=== PATIENT | female | born 1995 | race Two or more races ===

== ENCOUNTER 2025-03-20 11:44 | Inpatient (IN) | payer MEDICAID, OTHER ==
[~2025-03-20] VITALS: Ht 162.6 cm; Wt 77.8 kg
--- NOTE | 2025-03-20 12:08 | ED.PDOC ---
History of Present Illness HPI Comments 29-year-old female with no reported PMHx presents with a chief complaint of abdominal pain x onset 3 hours ago with associated rectal bleeding and nausea. Patient states that her pain is localized to her RUQ, nonradiating, nonexertional, describes as aching, and rates her pain a 5/10. Patient reports that she noticed today when using the restroom she had blood when wiping and blood in the toilet. Patient describes blood as bright red in color. Patient denies any rectal pain from the bleeding. No other symptoms or modifying factors present at this time. 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 Hx Family History Family History: Reviewed,noncontributory to illness Social History Smoker: Non-Smoker Alcohol: Denies ETOH Use Drugs: Denies Drug Use Lives In: Home Constitutional: denies: chills, diaphoresis, fatigue, fever, malaise, sweats, weakness, others EENTM: denies: blurred vision, double vision, ear bleeding, ear discharge, ear drainage, ear pain, ear ringing, eye pain, eye redness, hearing loss, mouth pain, mouth swelling, nasal discharge, nose bleeding, nose congestion, nose pain, photophobia, tearing, throat pain, throat swelling, voice changes, others Respiratory: denies: cough, hemoptysis, orthopnea, SOB at rest, shortness of breath, SOB with excertion, stridor, wheezing, others Cardiovascular: denies: chest pain, dizzy spells, diaphoresis, Dyspnea on exertion, edema, irregular heart beat, left arm pain, lightheadedness, palpitations, PND, syncope, others Gastrointestinal: reports: abdominal pain, nausea, rectal bleeding; denies: abdomen distended, blood streaked bowels, constipated, diarrhea, dysphagia, difficulty swallowing, hematemesis, melena, poor appetite, poor fluid intake, rectal pain, vomiting, others Genitourinary: denies: abnormal vagina bleeding, burning, dyspareunia, dysuria, flank pain, frequency, hematuria, incontinence, pain, , vagina discharge, urgency, others Neurological: denies: dizziness, fainting, headache, left sided numbness, left sided weakness, numbness, paresthesia, pre-existing deficit, right sided numbness, right sided weakness, seizure, speech problems, tingling, tremors, weakness, others Musculoskeletal: denies: back pain, gout, joint pain, joint swelling, muscle pain, muscle stiffness, neck pain, others Integumetry: denies: bruises, change in color, change in hair/nails, dryness, laceration, lesions, lumps, rash, wounds, others Allergic/Immunocompromised: denies: Difficulty Healing, Frequent Infections, Hives, Itching, others Hematologic/Lymphatic: denies: anemia, blood clots, easy bleeding, easy bruising, swollen glands, others Endocrine: denies: excessive hunger, excessive sweating, excessive thirst, excessive urination, flushing, intolerance to cold, intolerance to heat, unexplained weight gain, unexplained weight loss, others Psychiatric: denies: anxiety, bipolar disorder, depression, hopeless, panic disorder, schizophrenia, sleepless, suicidal, others All Other Systems: Reviewed and Negative Physical Exam General Appearance: Moderate Distress HEENT: Normal ENT Inspection, Pharynx Normal, TMs Normal Neck: Full Range of Motion, Non-Tender, Normal, Normal Inspection Respiratory: Chest Non-Tender, Lungs Clear, No Accessory Muscle Use, No Respiratory Distress, Normal Breath Sounds Cardiovascular: No Edema, No JVD, No Murmur, No Gallop, Normal Peripheral Pulses, Regular Rate/Rhythm Breast Exam: Deferred Gastrointestinal: Epigastric, No Organomegaly, No Pulsatile Mass, Normal Bowel Sounds, Soft, Tenderness Genitalia: Deferred Pelvic: Deferred Rectal: Deferred Extremities: No calf tenderness, Normal capillary refill, Normal inspection, Normal range of motion, Non-tender, No pedal edema Musculoskeletal : Apperance: Normal Neurologic: Alert, conveyor console operator II-XII nml as Tested, No Motor Deficits, Normal Affect, Normal Mood, No Sensory Deficits Cerebellar Function: Normal Reflexes: Normal Skin: Dry, Normal Color, Warm Lymphatic: No Adenopathy Was a procedure done? Was a procedure done?: No Differential Dx Considerations may include: Cholelithiasis, diverticulitis, generalized weakness X-Ray, Labs, Meds, VS Vital Signs Date Time Temp Pulse Resp B/P (MAP) Pulse Ox O2 Delivery O2 Flow Rate FiO2 03/20/25 14:43 96.4 96 16 102/68 (79) 96 96.4 03/20/25 11:59 97.9 106 18 118/61 (80) 97 97.9 Lab Test 03/20/25 13:34 03/20/25 12:02 Range/Units White Blood Count 11.2 H 4.4-10.8 10^3/uL Red Blood Count 4.96 4.0-5.20 10^6/uL Hemoglobin 14.4 12.2-16.2 g/dL Hematocrit 42.0 36.0-46.0 % Mean Corpuscular Volume 84.7 80.0-100.0 fL Mean Corpuscular Hemoglobin 29.0 28.0-32.0 pg Mean Corpuscular Hemoglobin Concent 34.2 32.0-36.0 g/dL Red Cell Distribution Width 13.5 11.8-14.3 % Platelet Count 393 140-450 10^3/uL Mean Platelet Volume 8.7 6.9-10.8 fL Neutrophils (%) (Auto) 72.9 37.0-80.0 % Lymphocytes (%) (Auto) 20.7 10.0-50.0 % Monocytes (%) (Auto) 4.4 0.0-12.0 % Eosinophils (%) (Auto) 1.6 0.0-7.0 % Basophils (%) (Auto) 0.4 0.0-2.0 % Neutrophils # (Auto) 8.1 1.6-8.6 10 ^3/uL Lymphocytes # (Auto) 2.3 0.4-5.4 10 ^3/uL Monocytes # (Auto) 0.5 0-1.3 10 ^3/uL Eosinophils # (Auto) 0.2 0-0.8 10 ^3/uL Basophils # (Auto) 0 0-0.2 10 ^3/uL Nucleated Red Blood Cells 0.0 % Prothrombin Time 10.1 9.3-11.8 sec Prothrombin Time INR 0.95 0.9-1.15 Activated Partial Thromboplast Time 28.0 24.5-34.5 SEC Sodium Level 139 136-145 mmol/L Potassium Level 4.2 3.5-5.1 mmol/L Chloride Level 104 98-107 mmol/L Carbon Dioxide Level 27 20-31 mmol/L Anion Gap 8 5-15 Blood Urea Nitrogen 14 9-23 mg/dL Creatinine 0.69 0.550-1.02 mg/dL Glomerular Filtration Rate Calc 121 >90 mL/min BUN/Creatinine Ratio 20.3 H 10.0-20.0 Serum Glucose 100 74-106 mg/dL Calcium Level 9.8 8.7-10.4 mg/dL Total Bilirubin 0.3 0.2-1.0 mg/dL Aspartate Amino Transferase (AST) 21 13-40 U/L Alanine Aminotransferase (ALT) 32 7-40 U/L Alkaline Phosphatase 89 46-116 U/L Total Protein 7.5 5.7-8.2 g/dL Albumin 4.9 H 3.2-4.8 g/dL Lipase 36 12-53 U/L Urine Color Colorless Yellow Urine Clarity Clear Clear Urine pH 5.5 5.0-9.0 Urine Specific [place] 1.008 1.001-1.035 Urine Protein Negative Negative Urine Ketones Negative Negative Urine Blood Negative Negative /uL Urine Nitrite Negative Negative Urine Bilirubin Negative Negative Urine Urobilinogen Normal Negative mg/dL Urine Leukocyte Esterase Negative Negative /uL Urine RBC None seen 0 - 4 /hpf Urine Microscopic WBC < 1 0-5 /HPF Urine Squamous Epithelial Cells Few <5 /hpf Urine Bacteria None seen None Seen /hpf Urine Glucose Normal Normal mg/dL Urine Test Negative Negative IV Hep-Lock was established The patient's CBC shows an elevated white blood cell count of 11.2 The rest of the CBC is within normal limits The chemistry panel is within normal limits The urine test is negative The patient is being admitted at this time An ultrasound of the gallbladder shows: IMPRESSION: 1. Cholelithiasis with no dilated duct or thickened gallbladder wall. A positive sonographic Kline's sign is elicited. 2. Right kidney measures 11.9 cm and appears normal 3. Pancreas appears normal Images Reviewed?: Images reviewed and evaluated by me Time of 1ST Reevaluation: 12:31 Reevaluation 1ST: Improved Patient Education/Counseling: Diagnosis, Treatment, Prognosis Family Education/Counseling: No Family Present SEPSIS Sepsis Screen Physician Orders Gallbladder (03/20/25 12:05) Vital Signs Date Time Temp Pulse Resp B/P (MAP) Pulse Ox O2 Delivery O2 Flow Rate FiO2 03/20/25 14:43 96.4 96 16 102/68 (79) 96 96.4 03/20/25 11:59 97.9 106 18 118/61 (80) 97 97.9 Laboratory Tests Test 03/20/25 13:34 White Blood Count 11.2 10^3/uL (4.4-10.8) H Departure 1 Departure Time of Disposition: 14:45 Impression: Primary Impression: Intractable abdominal pain Additional Impression: Cholelithiasis Qualified Codes: K80.20 - Calculus of gallbladder without cholecystitis without obstruction Disposition: ADMITTED INPATIENT Admit to: Med Surg Condition: Fair Critical Care Note Critical Care Time?: No Stability Stability form required: Yes Unstable for transfer: ED Physician Assesment (Clinical assesment) Heart Score Heart Score: Heart Score Response (Comments) Value History N/A 0 EKG N/A 0 Age N/A 0 Risk Factors N/A 0 Troponin N/A 0 Total 0 I personally scribed for MANA ESTRELLA MD ([email or web address]) on 03/20/25 at 12:08. Electronically submitted by Ean Daly ([email or web address]). MANA ESTRELLA MD Mar 20, 2025 12:08
--- NOTE | 2025-03-20 13:36 | DVH ---
INDICATION: pain TECHNIQUE: Multiple real-time sonographic images of the abdomen were obtained. COMPARISON: None FINDINGS: The liver is homogenous in echogenicity. The liver measures 17.9 cm. No intrahepatic bilia ry ductal dilatation is noted. The gallbladder wall measures 0.23 cm and is unremarkable. Gallstones are noted in the gallbladder. . The common duct measures 0.35 cm and is unremarkable. No pericholecystic fluid is noted. A positi ve sonographic kline's sign is elicited. The right kidney measures 11. cm. No hydronephrosis. The pancreas is visualized . The visualized portions of the IVC and aorta are grossly unremarkable. IMPRESSION: 1. Cholelithiasis with no dilated duct or thickened gallbladder wall. A positive sonographic Kline's sign is elicited. 2. Right kidney measures 11.9 cm and appears normal 3. Pancreas appears normal HS:Y
[2025-03-20 13:44] LABS: Urine Protein, UAD Negative (Negative)
[2025-03-20 13:51] LABS: Hematocrit 42.0 % (36.0-46.0); Hemoglobin 14.4 g/dL (12.2-16.2); Mean Corpuscular Hemoglobin 29.0 pg (28.0-32.0); Mean Corpuscular Volume 84.7 fL (80.0-100.0); Nucleated Red Blood Cells % 0.0 %
[2025-03-20 14:06] LABS: INR 0.95 (0.9-1.15); Partial Thromboplastin Time 28.0 SEC (24.5-34.5); Prothrombin Time 10.1 sec (9.3-11.8)
[2025-03-20 14:09] LABS: Alanine Aminotransferase 32 U/L (7-40); Alkaline Phosphatase 89 U/L (46-116); Anion Gap 8 (5-15); BUN/Creatinine Ratio 20.3 (10.0-20.0); Bilirubin, Total 0.3 mg/dL (0.2-1.0); Blood Urea Nitrogen 14 mg/dL (9-23); Calcium 9.8 mg/dL (8.7-10.4); Carbon Dioxide 27 mmol/L (20-31); Chloride 104 mmol/L (98-107); Glucose 100 mg/dL (74-106); Lipase 36 U/L (12-53); Potassium 4.2 mmol/L (3.5-5.1); Sodium 139 mmol/L (136-145); Total Protein 7.5 g/dL (5.7-8.2)
[2025-03-20 14:11] LABS: Albumin 4.9 g/dL (3.2-4.8)
[2025-03-20] MEDS ORDERED: ONDANSETRON HCL 4 MG/2 ML VIAL IV PRN (15:30)
[2025-03-20] MEDS ORDERED: ACETAMINOPHEN 325 MG TAB PO PRN (15:30)
[2025-03-20] MEDS ORDERED: HYDROcodone-ACET 5/325MG TAB PO PRN (15:30)
[2025-03-20] MEDS ORDERED: MORPHINE SULFATE INJ 2 MG/ml SYRG IV PRN ×2 (15:30→17:30)
[2025-03-20] MEDS: SODIUM CHLORIDE 0.9% 1,000 ML IV SCH (16:11)
[2025-03-20] MEDS: cefTRIAXone 1GM/50ML D5W 50 ML IV ONE (16:13)
--- NOTE | 2025-03-20 17:27 | DVHHP2 ---
History of Present Illness Reason for Visit: Acute abdominal pain History of Present Illness The patient is a 29-year-old female who denies past medical history [place] [facility] [place] of [place] pain. Patient reports she has been experiencing localized right upper quadrant abdominal pain, rating 5/10 numeric scale, described as aching, associated with nausea and rectal bleeding. She reports currently 8-month-old baby. Patient was seen and evaluated in the ED, laboratory data shows WBC 11.2, platelets 393, sodium 139, potassium 4.2, BUN 14, creatinine 0.69, glucose 100, calcium 9.8, lipase 36, blood pressure 102/68, heart rate 96, temperature 97.9 F, O2 saturation 96% on room air. Gallbladder ultrasound revealing cholelithiasis with no dilated ducts thickened gallbladder wall, no positive sonographic Kline's sign, pancreas appears normal, right kidney measures 11.9 cm and appears normal. Please see medication orders section in the computer. On my assessment, patient denied chest pain, no headache, no dizziness, no shortness of breaths, no diarrhea, no rectal bleeding at this moment, no nausea, no vomiting, no fever, no chills. Patient was admitted for further evaluation and medical management. Past Medical History Denies past medical history Past Surgical History Denies all surgeries Family History Reviewed, noncontributory to the management of this case. Past Social History The patient lives at home, denies smoking, alcohol or illicit drugs abuse. Review of Systems Constitutional: No: Fever, Chills, Sweats, Weakness, Malaise, Other Eyes: No: Pain, Vision change, Conjunctivae inflammation, Eyelid inflammation, Other, Redness ENT: No: Ear pain, Ear discharge, Nose pain, Nose discharge, Nose congestion, Mouth pain, Mouth swelling, Throat pain, Throat swelling, Other Respiratory: No: Cough, Dry, Shortness of breath, SOB with excertion, Wheezing, Hemoptysis, Pleuritic Pain, Sputum, Wheezing, Other Cardiovascular: No: Chest Pain, Palpitations, Orthopnea, Paroxysmal Noc. Dyspnea, Edema, Lt Headedness, Other Gastrointestinal: Nausea, Abdominal Pain, Other (Rectal bleeding); No: Vomiting, Diarrhea, Constipation, Melena, Hematochezia Genitourinary: No Dysuria, No Frequency, No Incontinence, No Hematuria, No Retention, No Other Musculoskeletal: No: other, neck pain, shoulder pain, arm pain, back pain, hand pain, leg pain, foot pain Skin: No: Rash, Lesions, Jaundice, Bruising, Other Neurological: No: Weakness, Numbness, Incoordination, Change in speech, Confusion, Seizures, Other Allergies: Coded Allergies: NO KNOWN ALLERGIES (Unverified , 03/20/25) Medications Current Medications Medications Dose Ordered Sig/Rubin Route Start Time Stop Time Status Last Admin Dose Admin Sodium Chloride 1,000 ml @ 60 mls/hr [id number] IV 03/20/25 15:30 03/20/25 16:11 60 MLS/HR Acetaminophen/ Hydrocodone Bitart 1 tab Q4HP PRN PO 03/20/25 15:30 Ondansetron HCl 4 mg Q4HP PRN IV 03/20/25 15:30 Acetaminophen 650 mg Q6HP PRN PO 03/20/25 15:30 Morphine Sulfate 2 mg Q4HPRN PRN IV 03/20/25 15:30 Ceftriaxone Sodium 50 ml @ 100 mls/hr DAILY@09 IV 03/21/25 09:00 Pantoprazole Sodium 40 mg DAILY IV 03/21/25 10:00 Exam Vital Signs Vital Signs Date Time Temp Pulse Resp B/P (MAP) Pulse Ox O2 Delivery O2 Flow Rate FiO2 03/20/25 16:55 98.2 82 16 105/63 (77) 98 98.2 03/20/25 16:51 Room Air* 0 21 General Appearance: Alert, Oriented X3, Cooperative, No acute distress HEENT: Atraumatic, PERRLA, EOMI, Mucous membr. moist/pink Respiratory: Normal air movement Cardiovascular: Regular rate, Normal S1, Normal S2, No murmurs Abdominal: Normal bowel sounds, Soft, No tenderness, No hepatospenomegaly, No masses Extremities: No clubbing, No cyanosis, No edema, Normal pulses, No tenderness/swelling Skin: No rashes, No breakdown, No significant lesion Neuro: Normal gait, Normal speech, Strength at 5/5 X4 ext, Normal tone, Sensation intact, Cranial nerves 3-12 NL, Reflexes 2+ Psych/Mental Status: Mental status NL, Mood NL Labs/Xrays Labs Test 03/20/25 13:34 03/20/25 12:02 Range/Units White Blood Count 11.2 H 4.4-10.8 10^3/uL Red Blood Count 4.96 4.0-5.20 10^6/uL Hemoglobin 14.4 12.2-16.2 g/dL Hematocrit 42.0 36.0-46.0 % Mean Corpuscular Volume 84.7 80.0-100.0 fL Mean Corpuscular Hemoglobin 29.0 28.0-32.0 pg Mean Corpuscular Hemoglobin Concent 34.2 32.0-36.0 g/dL Red Cell Distribution Width 13.5 11.8-14.3 % Platelet Count 393 140-450 10^3/uL Mean Platelet Volume 8.7 6.9-10.8 fL Neutrophils (%) (Auto) 72.9 37.0-80.0 % Lymphocytes (%) (Auto) 20.7 10.0-50.0 % Monocytes (%) (Auto) 4.4 0.0-12.0 % Eosinophils (%) (Auto) 1.6 0.0-7.0 % Basophils (%) (Auto) 0.4 0.0-2.0 % Neutrophils # (Auto) 8.1 1.6-8.6 10 ^3/uL Lymphocytes # (Auto) 2.3 0.4-5.4 10 ^3/uL Monocytes # (Auto) 0.5 0-1.3 10 ^3/uL Eosinophils # (Auto) 0.2 0-0.8 10 ^3/uL Basophils # (Auto) 0 0-0.2 10 ^3/uL Nucleated Red Blood Cells 0.0 % Prothrombin Time 10.1 9.3-11.8 sec Prothrombin Time INR 0.95 0.9-1.15 Activated Partial Thromboplast Time 28.0 24.5-34.5 SEC Sodium Level 139 136-145 mmol/L Potassium Level 4.2 3.5-5.1 mmol/L Chloride Level 104 98-107 mmol/L Carbon Dioxide Level 27 20-31 mmol/L Anion Gap 8 5-15 Blood Urea Nitrogen 14 9-23 mg/dL Creatinine 0.69 0.550-1.02 mg/dL Glomerular Filtration Rate Calc 121 >90 mL/min BUN/Creatinine Ratio 20.3 H 10.0-20.0 Serum Glucose 100 74-106 mg/dL Calcium Level 9.8 8.7-10.4 mg/dL Total Bilirubin 0.3 0.2-1.0 mg/dL Aspartate Amino Transferase (AST) 21 13-40 U/L Alanine Aminotransferase (ALT) 32 7-40 U/L Alkaline Phosphatase 89 46-116 U/L Total Protein 7.5 5.7-8.2 g/dL Albumin 4.9 H 3.2-4.8 g/dL Lipase 36 12-53 U/L Urine Color Colorless Yellow Urine Clarity Clear Clear Urine pH 5.5 5.0-9.0 Urine Specific [place] 1.008 1.001-1.035 Urine Protein Negative Negative Urine Ketones Negative Negative Urine Blood Negative Negative /uL Urine Nitrite Negative Negative Urine Bilirubin Negative Negative Urine Urobilinogen Normal Negative mg/dL Urine Leukocyte Esterase Negative Negative /uL Urine RBC None seen 0 - 4 /hpf Urine Microscopic WBC < 1 0-5 /HPF Urine Squamous Epithelial Cells Few <5 /hpf Urine Bacteria None seen None Seen /hpf Urine Glucose Normal Normal mg/dL Urine Test Negative Negative PATIENT: JARETT COTAACCT: [id number] UNIT: [id number] : 1995 LOC: ER ROOM / BED: / AGE / SEX: 29 / F ADM STATUS: REG ER SERVICE 1205 ORDERING PHYSICIAN: MANA ESTRELLA MD PROCEDURE(s): GBUS - GALLBLADDER REASON: pain ORDER NUMBER(s): [id number], ACCESSION NUMBER(s): [id number] INDICATION: pain TECHNIQUE: Multiple real-time sonographic images of the abdomen were obtained. COMPARISON: None FINDINGS: The liver is homogenous in echogenicity. The liver measures 17.9 cm. No intrahepatic biliary ductal dilatation is noted. The gallbladder wall measures 0.23 cm and is unremarkable. Gallstones are noted in the gallbladder. The common duct measures 0.35 cm and is unremarkable. No pericholecystic fluid is noted. A positive sonographic kline's sign is elicited. The right kidney measures 11. cm. No hydronephrosis. The pancreas is visualized . The visualized portions of the IVC and aorta are grossly unremarkable. IMPRESSION: 1. Cholelithiasis with no dilated duct or thickened gallbladder wall. A positive sonographic Kline's sign is elicited. 2. Right kidney measures 11.9 cm and appears normal 3. Pancreas appears normal SEPSIS Sepsis Screen Date sepsis recognized/suspect: Mar 20, 2025 Time Sepsis recognized/suspect: 1707 Recent Procedure: No On Antibiotic Therapy: No Respiratory Rate >20: No Heart Rate >90: No Temp<36 C (96.8 F) or >38.3 C: No SBP <90 or MAP <65 mmHG: No New Acute Mental Status Change: No Is the patient on CPAP, BIPAP,: No Physician Orders Gallbladder (03/20/25 12:05) Allergies (03/20/25 15:30) Code Status (03/20/25 15:30) Sodium Chloride 0.9% (03/20/25 15:30) Oxygen Per Hour (03/20/25 15:30) Hydrocodone-Acet 5/325mg Tab (Rentz 5/32 (03/20/25 15:30) Ondansetron Hcl (Zofran) (03/20/25 15:30) Complete Blood Count (03/21/25 04:00) Comprehensive Metabolic Panel (03/21/25 04:00) Condition: Serious (03/20/25 15:30) Acetaminophen Tablet (Tylenol Tablet) (03/20/25 15:30) Clear Liq Diet (03/20/25 Dinner) Bedrest With Bathroom Privileg (03/20/25 15:30) Morphine Sulfate Injection (03/20/25 15:30) Sequential Compression Device (03/20/25 ) Ceftriaxone 1gm/50ml D5w (Rocephin) (03/21/25 09:00) Pantoprazole (Protonix) (03/21/25 10:00) Vital Signs Date Time Temp Pulse Resp B/P (MAP) Pulse Ox O2 Delivery O2 Flow Rate FiO2 03/20/25 16:55 98.2 82 16 105/63 (77) 98 98.2 03/20/25 16:51 Room Air* 0 21 03/20/25 14:43 96.4 96 16 102/68 (79) 96 96.4 03/20/25 11:59 97.9 106 18 118/61 (80) 97 97.9 Laboratory Tests Test 03/20/25 13:34 White Blood Count 11.2 10^3/uL (4.4-10.8) H Medications Medications Dose Ordered Sig/Rubin Route Start Time Stop Time Status Last Admin Dose Admin Ceftriaxone Sodium 50 ml @ 100 mls/hr ONCE ONCE IV 03/20/25 15:30 03/20/25 15:59 DC 03/20/25 16:13 100 MLS/HR Sodium Chloride 1,000 ml @ 60 mls/hr [id number] IV 03/20/25 15:30 03/20/25 16:11 60 MLS/HR Assessment/Plan Assessment/Plan Intractable abdominal pain Cholelithiasis Leukocytosis, unspecified Calculus of gallbladder without cholecystitis without obstruction Plan 1. Admit to med surge unit 2. Breathing treatment 3. Pain control management 4. IV antibiotic management 5. Management of fluids and electrolytes 6. Consultation for hospitalist 7. Diagnostic test gallbladder ultrasound 8. DVT prophylaxis on SCDs 9. Repeat labs CBC, CMP in a.m. 10. Continue with current medical management 11. Treatment plan discussed with patient and RN. Patient verbalized understanding. Plan discussed with: Patient, Other (RN) My Orders Orders - JOYCE BREWSTER DNP Procedure Category Date Status Time Allergies KIA 03/20/25 In Process 15:30 Code Status CODE 03/20/25 Transmitted 15:30 Sodium Chloride 0.9% PHA 03/20/25 In Process 15:30 Oxygen Per Hour RT 03/20/25 Transmitted 15:30 Hydrocodone-Acet PHA 03/20/25 In Process 5/325mg Tab (Rentz 15:30 Ondansetron Hcl PHA 03/20/25 In Process (Zofran) 15:30 Complete Blood Count LAB 03/21/25 Verified 04:00 Comprehensive LAB 03/21/25 Verified Metabolic Panel 04:00 Condition: Serious KIA 03/20/25 In Process 15:30 Acetaminophen Tablet PHA 03/20/25 In Process (Tylenol Tablet) 15:30 Clear Liq Diet DIET 03/20/25 Transmitted Dinner Bedrest With Bathroom KIA 03/20/25 In Process Privileg 15:30 Morphine Sulfate PHA 03/20/25 In Process Injection 15:30 Sequential KIA 03/20/25 In Process Compression Device Ceftriaxone 1gm/50ml PHA 03/21/25 In Process D5w (Rocephin) 09:00 Pantoprazole PHA 03/21/25 In Process (Protonix) 10:00 Problem List: (1) Intractable abdominal pain (2) Cholelithiasis (3) Leukocytosis, unspecified (4) Calculus of gallbladder without cholecystitis without obstruction Date of Service: Mar 20, 2025 Billing Provider: JOYCE BREWSTER DNP Common Visit Codes: [id number] INP/OBS CARE (HIGH) JOYCE BREWSTER DNP Mar 20, 2025 17:27
[2025-03-20] MEDS ORDERED: NITROGLYCERIN 0.4 MG SL TAB SL PRN (17:30)
[2025-03-21] VITALS (7 sets, daily range): BP systolic 95–139; BP diastolic 44–89; PULSE 66–81; RESP 15–18; TEMP 97.5–98.3; O2SAT 95–100
[2025-03-21 03:54] LABS: Hematocrit 37.3 % (36.0-46.0); Hemoglobin 12.8 g/dL (12.2-16.2); Mean Corpuscular Hemoglobin 28.9 pg (28.0-32.0); Mean Corpuscular Volume 84.3 fL (80.0-100.0); Nucleated Red Blood Cells % 0.1 %
[2025-03-21 04:08] LABS: Alanine Aminotransferase 31 U/L (7-40); Albumin 4.4 g/dL (3.2-4.8); Alkaline Phosphatase 77 U/L (46-116); Anion Gap 9 (5-15); BUN/Creatinine Ratio 16.9 (10.0-20.0); Bilirubin, Total 0.3 mg/dL (0.2-1.0); Blood Urea Nitrogen 11 mg/dL (9-23); Calcium 10.0 mg/dL (8.7-10.4); Carbon Dioxide 26 mmol/L (20-31); Chloride 105 mmol/L (98-107); Glucose 95 mg/dL (74-106); Potassium 3.7 mmol/L (3.5-5.1); Sodium 140 mmol/L (136-145); Total Protein 6.9 g/dL (5.7-8.2)
[2025-03-21] MEDS: cefTRIAXone 1GM/50ML D5W 50 ML IV SCH (09:13)
[2025-03-21] MEDS: PANTOPRAZOLE 40 MG/10 ML VIAL INJ IV SCH (10:54)
--- NOTE | 2025-03-21 13:48 | DVHPN2 ---
Progress Note Date Seen: Mar 21, 2025 Medical Necessity Reason Pt with a Central, PICC or Fol: No Subjective Patient reports: No new complaints Review of Systems: HEENT:Normal, CVS:Normal, RESPIRATORY:Normal, GI:Normal, :Normal, MSK:Normal, NEURO:Normal Objective vital signs Vital Sign Date Time Temp Pulse Resp B/P (MAP) Pulse Ox O2 Delivery O2 Flow Rate FiO2 03/21/25 11:09 78 18 Room Air* 0 21 03/21/25 10:37 97.7 95/56 (69) 98 97.7 medications Current Medications Medications Dose Ordered Sig/Rubin Route Start Time Stop Time Status Last Admin Dose Admin Sodium Chloride 1,000 ml @ 60 mls/hr [id number] IV 03/20/25 15:30 03/20/25 16:11 60 MLS/HR Acetaminophen/ Hydrocodone Bitart 1 tab Q4HP PRN PO 03/20/25 15:30 Ondansetron HCl 4 mg Q4HP PRN IV 03/20/25 15:30 Acetaminophen 650 mg Q6HP PRN PO 03/20/25 15:30 Morphine Sulfate 2 mg Q4HPRN PRN IV 03/20/25 15:30 Ceftriaxone Sodium 50 ml @ 100 mls/hr DAILY@09 IV 03/21/25 09:00 03/21/25 09:13 100 MLS/HR Pantoprazole Sodium 40 mg DAILY IV 03/21/25 10:00 03/21/25 10:54 40 MG Nitroglycerin 0.4 mg Q5MINP PRN SL 03/20/25 17:30 Morphine Sulfate 2 mg Q30M PRN IV 03/20/25 17:30 Examination: GENERAL:Normal, HEENT:Normal, NECK:Normal, LUNGS:Normal, CVS:Normal, ABDOMEN:Normal, MSK:Normal, SKIN:Normal, NEURO:Normal, :Normal laboratory and microbiology Laboratory Tests 03/21/25 03:13 Test 03/21/25 03:13 Range/Units Serum Glucose 95 74-106 mg/dL Problem List/Assessment/Plan Problem List/Assessment/Plan #1 GI bleeding: gi eval, ppi #2 gallstones ?acute geoff: ivf, iv antibiotics Plan discussed with: Patient, Spouse My Orders My Orders Orders - IBETH HIGH MD Procedure Category Date Status Time * Gi Dvh Director Of Sustainability CONS 03/21/25 Verified 13:45 Metronidazole Ivpb PHA 03/21/25 Verified Flagyl 14:00 Ct Ab Pel Wo Con-No CT 03/21/25 Verified Oral Or Iv 13:45 Basic Metabolic Panel LAB 03/22/25 Verified 06:00 Complete Blood Count LAB 03/22/25 Verified 06:00 Date of Service: Mar 21, 2025 Billing Provider: IBETH HIGH MD Common Visit Codes: [id number] INP/OBS CARE(HIGH) IBETH HIGH MD Mar 21, 2025 13:48
--- NOTE | 2025-03-21 14:24 | DVHINCON2 ---
Date of service: Mar 21, [address] Victoria Reason for Consultation Rectal bleeding History of Present Illness The patient is a 29-year-old female who denies past medical history presented to [facility] ED with complaint of abdominal pain. Patient reports she has been experiencing localized right upper lower quadrant abdominal pain, rating 5/10 numeric scale, described as aching, associated with nausea and rectal bleeding. She reports currently 8-month-old baby. Patient came to the ER because she had moderate amount of bright red blood per rectum yesterday. Today the patient has not had any further bleeding. Has noted some constipation alternating with normal stools. She is also complaining of some GERD and dyspepsia symptoms. Gallbladder ultrasound revealing cholelithiasis with no dilated ducts thickened gallbladder wall, no positive sonographic Kline's sign, pancreas appears normal, right kidney measures 11.9 cm and appears normal. Past Medical History Negative Family History: Patient reports no known family medical history. Allergies: Coded Allergies: NO KNOWN ALLERGIES (Unverified , 03/20/25) Home Meds No Active Prescriptions or Reported Meds Current Medications Current Medications Medications (Trade) Dose Ordered Sig/Rubin Route PRN Reason Start Time Stop Time Status Last Admin Sodium Chloride 1,000 ml @ 60 mls/hr [id number] IV 03/20/25 15:30 03/20/25 16:11 Acetaminophen/ Hydrocodone Bitart ([place] 5/325MG Tab) 1 tab Q4HP PRN PO MODERATE PAIN (4-6 PAIN SCALE) 03/20/25 15:30 Ondansetron HCl (Zofran) 4 mg Q4HP PRN IV NAUSEA / VOMITING 03/20/25 15:30 Acetaminophen (Tylenol Tablet) 650 mg Q6HP PRN PO PAIN SCALE 1-3 OR TEMP>100.4 03/20/25 15:30 Morphine Sulfate 2 mg Q4HPRN PRN IV SEVERE PAIN (7-10 PAIN SCALE) 03/20/25 15:30 Ceftriaxone Sodium 50 ml @ 100 mls/hr DAILY@09 IV 03/21/25 09:00 03/21/25 09:13 Pantoprazole Sodium (Protonix) 40 mg DAILY IV 03/21/25 10:00 03/21/25 10:54 Nitroglycerin (Ntrostat Sublingual) 0.4 mg Q5MINP PRN SL FOR CHEST PAIN 03/20/25 17:30 Morphine Sulfate 2 mg Q30M PRN IV FOR CHEST PAIN 03/20/25 17:30 Metronidazole 100 ml @ 100 mls/hr Q8HR IV 03/21/25 14:00 Vital Signs Vital Signs Date Time Temp Pulse Resp B/P (MAP) Pulse Ox O2 Delivery O2 Flow Rate FiO2 03/21/25 12:30 97.5 76 18 101/44 (63) 100 97.5 03/21/25 11:09 Room Air* 0 21 Physical Exam General Appearance: Alert, Oriented X3, Cooperative, No acute distress HEENT: Atraumatic, PERRLA, EOMI, Mucous membr. moist/pink Respiratory: Normal air movement Cardiovascular: Regular rate, Normal S1, Normal S2, No murmurs Abdominal: Normal bowel sounds, Soft, No tenderness, No hepatospenomegaly, No masses Extremities: No clubbing, No cyanosis, No edema, Normal pulses, No tenderness/swelling Skin: No rashes, No breakdown, No significant lesion Neuro: Normal gait, Normal speech, Strength at 5/5 X4 ext, Normal tone, Sensation intact, Cranial nerves 3-12 NL, Reflexes 2+ Psych/Mental Status: Mental status NL, Mood NL Labs/Diagnostic Data Labs Test 03/21/25 03:13 03/20/25 13:34 03/20/25 12:02 Range/Units White Blood Count 11.0 H 4.4-10.8 10^3/uL Red Blood Count 4.43 4.0-5.20 10^6/uL Hemoglobin 12.8 12.2-16.2 g/dL Hematocrit 37.3 # 36.0-46.0 % Mean Corpuscular Volume 84.3 80.0-100.0 fL Mean Corpuscular Hemoglobin 28.9 28.0-32.0 pg Mean Corpuscular Hemoglobin Concent 34.2 32.0-36.0 g/dL Red Cell Distribution Width 13.9 11.8-14.3 % Platelet Count 359 140-450 10^3/uL Mean Platelet Volume 9.0 6.9-10.8 fL Neutrophils (%) (Auto) 61.0 37.0-80.0 % Lymphocytes (%) (Auto) 31.1 10.0-50.0 % Monocytes (%) (Auto) 5.5 0.0-12.0 % Eosinophils (%) (Auto) 2.0 0.0-7.0 % Basophils (%) (Auto) 0.4 0.0-2.0 % Neutrophils # (Auto) 6.7 1.6-8.6 10 ^3/uL Lymphocytes # (Auto) 3.4 0.4-5.4 10 ^3/uL Monocytes # (Auto) 0.6 0-1.3 10 ^3/uL Eosinophils # (Auto) 0.2 0-0.8 10 ^3/uL Basophils # (Auto) 0 0-0.2 10 ^3/uL Nucleated Red Blood Cells 0.1 % Sodium Level 140 136-145 mmol/L Potassium Level 3.7 3.5-5.1 mmol/L Chloride Level 105 98-107 mmol/L Carbon Dioxide Level 26 20-31 mmol/L Anion Gap 9 5-15 Blood Urea Nitrogen 11 9-23 mg/dL Creatinine 0.65 0.550-1.02 mg/dL Glomerular Filtration Rate Calc 123 >90 mL/min BUN/Creatinine Ratio 16.9 10.0-20.0 Serum Glucose 95 74-106 mg/dL Calcium Level 10.0 8.7-10.4 mg/dL Total Bilirubin 0.3 0.2-1.0 mg/dL Aspartate Amino Transferase (AST) 20 13-40 U/L Alanine Aminotransferase (ALT) 31 7-40 U/L Alkaline Phosphatase 77 46-116 U/L Total Protein 6.9 5.7-8.2 g/dL Albumin 4.4 3.2-4.8 g/dL Prothrombin Time 10.1 9.3-11.8 sec Prothrombin Time INR 0.95 0.9-1.15 Activated Partial Thromboplast Time 28.0 24.5-34.5 SEC Lipase 36 12-53 U/L Urine Color Colorless Yellow Urine Clarity Clear Clear Urine pH 5.5 5.0-9.0 Urine Specific [place] 1.008 1.001-1.035 Urine Protein Negative Negative Urine Ketones Negative Negative Urine Blood Negative Negative /uL Urine Nitrite Negative Negative Urine Bilirubin Negative Negative Urine Urobilinogen Normal Negative mg/dL Urine Leukocyte Esterase Negative Negative /uL Urine RBC None seen 0 - 4 /hpf Urine Microscopic WBC < 1 0-5 /HPF Urine Squamous Epithelial Cells Few <5 /hpf Urine Bacteria None seen None Seen /hpf Urine Glucose Normal Normal mg/dL Urine Test Negative Negative Problems(with codes): (1) GERD (gastroesophageal reflux disease) (2) Rectal bleeding (3) Calculus of gallbladder without cholecystitis without obstruction (4) Leukocytosis, unspecified (5) Intractable abdominal pain (6) Cholelithiasis Plan/Recommendation Plan Continue clear liquid diet Protonix 40 mg p.o. daily Patient is scheduled for a CT scan of the abdomen pelvis We will decide regarding proceeding with a colonoscopy as an inpatient if she shows signs of ongoing active bleeding if there was any abnormality in the CT scan Otherwise patient was advised to follow up in my office as an outpatient and avoid aspirin and NSAIDs Monitor labs and I will follow up patient with you Plan discussed with: Patient, Other (Dr Victoria) NORA AGUAYO MD Mar 21, 2025 14:24
--- NOTE | 2025-03-21 14:56 | DVH ---
Exam: CT CT AB PEL WO CON-NO ORAL OR IV History: GI BLEEDING Comparison Study: None Technique: Multidetector spiral CT of the abdomen and pelvis was performed from lung bases to pubic symphysis. Imaging was performed without IV contrast. Axial, coronal and sagittal multiplanar reform ats were obtained from the axial data set by the technologist. Radiation dose : Abdomen/Pelvis: CTDIvol 8.91 mGy, DLP 481.82 mGy*cm. Findings: Evaluation of solid organs is limited due to lack of intravenous contrast use. Lung Bases: No acute or significant lung base finding. Normal heart size. No pleural or pericardial effusion. Liver: The liver is normal in size. No focal lesions. Gallbladder and biliary Tree: Cholelithiasis noted without secondary findings of cholecystitis or sincere iary obstruction. Spleen: Unremarkable Pancreas: The pancreas is grossly normal in appearance. Adrenal Glands: Unremarkable Kidneys: Kidneys are grossly normal without calculi or hydronephrosis. Bladder: Grossly unremarkable for degree of distention. Bowel: The stomach is grossly normal in appearance. Small bowel and colon are normal in caliber and d istribution. Normal appendix is visualized in the right lower quadrant without findings of appendicit is. Ascites: Trace free fluid in the pelvis is likely physiologic. Lymphadenopathy: Subcentimeter mesenteric lymph nodes. Abdominal wall and Mesentery: Unremarkable. Vasculature: The visualized abdominal aorta is normal in size and caliber. Evaluation of abdominal a nd pelvic vessels is limited due to lack of intravenous contrast. Pelvic Organs: Unremarkable Musculoskeletal: No aggressive focal bony lesions, acute fractures or dislocation. IMPRESSION: 1. No acute abdominal or pelvic findings. Cholelithiasis. Subcentimeter mesenteric nodes are nonspeci fic. Free-fluid in the pelvis is likely physiologic. Radiation optimization: All CT scans at this facility use at least one of these dose optimization isiah hniques: Automated exposure control mA and/or kV adjustment per patient size (includes targeted exams where dose is matched to clinical indication) or iterative reconstruction. HS:Y
[2025-03-22 00:44] VITALS: BP 95/50; PULSE 69; RESP 15; TEMP 97.7; O2SAT 98
[2025-03-22 05:00] VITALS: BP 93/62; PULSE 86; RESP 16; O2SAT 99
[2025-03-22 06:27] LABS: Chloride 104 mmol/L (98-107); Potassium 3.5 mmol/L (3.5-5.1); Sodium 140 mmol/L (136-145)
[2025-03-22 06:28] LABS: Anion Gap 10 (5-15); Carbon Dioxide 26 mmol/L (20-31)
[2025-03-22 06:29] LABS: Calcium 9.1 mg/dL (8.7-10.4)
[2025-03-22 06:33] LABS: Glucose 86 mg/dL (74-106)
[2025-03-22 06:34] LABS: BUN/Creatinine Ratio 13.6 (10.0-20.0)
[2025-03-22 06:35] LABS: Blood Urea Nitrogen 9 mg/dL (9-23)
[2025-03-22 06:37] LABS: Hematocrit 36.9 % (36.0-46.0); Hemoglobin 12.9 g/dL (12.2-16.2); Mean Corpuscular Hemoglobin 29.3 pg (28.0-32.0); Mean Corpuscular Volume 84.2 fL (80.0-100.0); Nucleated Red Blood Cells % 0.1 %
[2025-03-22 08:09] VITALS: PULSE 66; RESP 18; O2SAT 99
[2025-03-22 08:42] VITALS: BP 105/57; PULSE 66; RESP 18; TEMP 98.4; O2SAT 99
--- NOTE | 2025-03-22 09:41 | DVHPN2 ---
Progress Note - Dictate Date Seen: Mar 22, 2025 Medical Necessity Reason Pt with a Central, PICC or Fol: No Subjective No new complaints No further GI bleeding H&H stable at 12.9 vital signs Vital Sign Date Time Temp Pulse Resp B/P (MAP) Pulse Ox O2 Delivery O2 Flow Rate FiO2 03/22/25 08:42 98.4 66 18 105/57 (73) 99 98.4 03/21/25 23:59 Room Air* 0 21 Total Intake and Output 03/21/25 03/21/25 03/22/25 15:00 23:00 07:00 Intake Total 120 ml 2000 ml 450 ml Output Total 2 ml Balance 120 ml 2000 ml 448 ml medications Current Medications Medications Dose Ordered Sig/Rubin Route Start Time Stop Time Status Last Admin Dose Admin Sodium Chloride 1,000 ml @ 60 mls/hr [id number] IV 03/20/25 15:30 03/22/25 01:17 60 MLS/HR Acetaminophen/ Hydrocodone Bitart 1 tab Q4HP PRN PO 03/20/25 15:30 Ondansetron HCl 4 mg Q4HP PRN IV 03/20/25 15:30 Acetaminophen 650 mg Q6HP PRN PO 03/20/25 15:30 Morphine Sulfate 2 mg Q4HPRN PRN IV 03/20/25 15:30 Ceftriaxone Sodium 50 ml @ 100 mls/hr DAILY@09 IV 03/21/25 09:00 03/21/25 09:13 100 MLS/HR Pantoprazole Sodium 40 mg DAILY IV 03/21/25 10:00 03/21/25 10:54 40 MG Nitroglycerin 0.4 mg Q5MINP PRN SL 03/20/25 17:30 Morphine Sulfate 2 mg Q30M PRN IV 03/20/25 17:30 Metronidazole 100 ml @ 100 mls/hr Q8HR IV 03/21/25 14:00 03/22/25 05:28 100 MLS/HR objective General Appearance: Alert, Oriented X3, Cooperative, No acute distress HEENT: Atraumatic, PERRLA, EOMI, Mucous membr. moist/pink Respiratory: Normal air movement Cardiovascular: Regular rate, Normal S1, Normal S2, No murmurs Abdominal: Normal bowel sounds, Soft, No tenderness, No hepatospenomegaly, No masses Extremities: No clubbing, No cyanosis, No edema, Normal pulses, No tenderness/swelling Skin: No rashes, No breakdown, No significant lesion Neuro: Normal gait, Normal speech, Strength at 5/5 X4 ext, Normal tone, Sensation intact, Cranial nerves 3-12 NL, Reflexes 2+ Psych/Mental Status: Mental status NL, Mood NL laboratory and microbiology Laboratory Tests 03/22/25 05:01 Test 03/22/25 05:01 Range/Units Serum Glucose 86 74-106 mg/dL Abd Pelvic CT Scan IMPRESSION: 1. No acute abdominal or pelvic findings. Cholelithiasis. Subcentimeter mesenteric nodes are nonspecific. Free-fluid in the pelvis is likely physiologic. Problems(with codes): (1) Rectal bleeding (2) Calculus of gallbladder without cholecystitis without obstruction (3) Cholelithiasis (4) Leukocytosis, unspecified Prognosis A/P 1.Cholelithiasis Initially patient had some abdominal discomfort elevated white count and there was a positive Kline's sign when ultrasound was being done However her liver enzymes have normal and patient is currently pain-free and her white count has come down to normal Discuss with patient about conservative management versus surgical consult and HIDA scan Defer to hospitalist and patient regarding further management 2. Rectal bleeding Possibly related to hemorrhoids which has now resolved H&H is stable Stool for occult blood is negative and stool for WBCs negative which points against colitis Continue observation and discuss possible colonoscopy if symptoms recur, this can be arranged electively as an outpatient Patient can follow up in my office in 2-4 weeks for ongoing observation and management Plan discussed with: Patient, Other (Dr Victoria) NORA AGUAYO MD Mar 22, 2025 09:41
--- NOTE | 2025-03-22 10:15 | DVHDS2 ---
Discharge Summary Date of Admission Mar 20, 2025 at 17:26 Date of Discharge: Mar 22, 2025 Labs/Diagnostic Data: Laboratory Results Test 03/22/25 05:01 03/21/25 19:18 03/21/25 17:00 03/21/25 03:13 White Blood Count 9.4 10^3/uL (4.4-10.8) Red Blood Count 4.39 10^6/uL (4.0-5.20) Hemoglobin 12.9 g/dL (12.2-16.2) Hematocrit 36.9 % (36.0-46.0) Mean Corpuscular Volume 84.2 fL (80.0-100.0) Mean Corpuscular Hemoglobin 29.3 pg (28.0-32.0) Mean Corpuscular Hemoglobin Concent 34.8 g/dL (32.0-36.0) Red Cell Distribution Width 14.0 % (11.8-14.3) Platelet Count 323 10^3/uL (140-450) Mean Platelet Volume 8.8 fL (6.9-10.8) Neutrophils (%) (Auto) 64.2 % (37.0-80.0) Lymphocytes (%) (Auto) 27.0 % (10.0-50.0) Monocytes (%) (Auto) 5.7 % (0.0-12.0) Eosinophils (%) (Auto) 2.7 % (0.0-7.0) Basophils (%) (Auto) 0.4 % (0.0-2.0) Neutrophils # (Auto) 6.0 10 ^3/uL (1.6-8.6) Lymphocytes # (Auto) 2.5 10 ^3/uL (0.4-5.4) Monocytes # (Auto) 0.5 10 ^3/uL (0-1.3) Eosinophils # (Auto) 0.3 10 ^3/uL (0-0.8) Basophils # (Auto) 0 10 ^3/uL (0-0.2) Nucleated Red Blood Cells 0.1 % Sodium Level 140 mmol/L (136-145) Potassium Level 3.5 mmol/L (3.5-5.1) Chloride Level 104 mmol/L (98-107) Carbon Dioxide Level 26 mmol/L (20-31) Anion Gap 10 (5-15) Blood Urea Nitrogen 9 mg/dL (9-23) Creatinine 0.66 mg/dL (0.550-1.02) Glomerular Filtration Rate Calc 122 mL/min (>90) BUN/Creatinine Ratio 13.6 (10.0-20.0) Serum Glucose 86 mg/dL (74-106) Calcium Level 9.1 mg/dL (8.7-10.4) Stool Occult Blood Negative (Negative) Stool Occult Blood Sample #3 (Negative) Stool for White Cells None seen Total Bilirubin 0.3 mg/dL (0.2-1.0) Aspartate Amino Transferase (AST) 20 U/L (13-40) Alanine Aminotransferase (ALT) 31 U/L (7-40) Alkaline Phosphatase 77 U/L (46-116) Total Protein 6.9 g/dL (5.7-8.2) Albumin 4.4 g/dL (3.2-4.8) Test 03/20/25 13:34 03/20/25 12:02 Prothrombin Time 10.1 sec (9.3-11.8) Prothrombin Time INR 0.95 (0.9-1.15) Activated Partial Thromboplast Time 28.0 SEC (24.5-34.5) Lipase 36 U/L (12-53) Urine Color Colorless (Yellow) Urine Clarity Clear (Clear) Urine pH 5.5 (5.0-9.0) Urine Specific [place] 1.008 (1.001-1.035) Urine Protein Negative (Negative) Urine Ketones Negative (Negative) Urine Blood Negative /uL (Negative) Urine Nitrite Negative (Negative) Urine Bilirubin Negative (Negative) Urine Urobilinogen Normal mg/dL (Negative) Urine Leukocyte Esterase Negative /uL (Negative) Urine RBC None seen /hpf (0 - 4) Urine Microscopic WBC < 1 /HPF (0-5) Urine Squamous Epithelial Cells Few /hpf (<5) Urine Bacteria None seen /hpf (None Seen) Urine Glucose Normal mg/dL (Normal) Urine Test Negative (Negative) Other Laboratory Tests 03/22/25 05:01 Brief Hx & Hospital Course: see dictated note Condition at Discharge: Good Final Diagnosis/Problems List gallstones Discharge Disposition: Home Discharge Instruct/Medications Diet: Cardiac 2g Na,low cholest Activity: No Restrictions, As Tolerated Follow Up/Referral: fu with pcp/gi Medications: script to pharmacy No Active Prescriptions or Reported Meds Discharge Statement: "Patient was advised to return to the ER or call 911 if any headaches, dizziness, shortness of breath, chest pain, abdominal pain, bleeding, fevers, or worsening of medical condition. Patient was counseled about treatment plan, medications, possible side effects, patientverbalized understanding. All questions were answered to the best of my ability. This discharge took greater then 30 minutes in planning, reviewing documentation, counseling the patient, and discussing with other team members." ASSESSMENT ASSESSMENT Assessment gallstones Date of Service: Mar 22, 2025 Billing Provider: IBETH HIGH MD Common Visit Codes: 16220-HPR/OBS DISCH DAY >30min IBETH HIGH MD Mar 22, 2025 10:14
[2025-03-22] MEDS ORDERED: LEVO500T91 PO (10:18)
[2025-03-22] MEDS ORDERED: MET500T PO (10:18)
--- NOTE | 2025-03-22 10:26 | DVHDS ---
HISTORY OF PRESENT ILLNESS: The patient is a 29-year-old lady who is admitted with complaints of right abdominal pain along with GI bleeding. The patient had a gallbladder ultrasound that showed evidence of cholelithiasis. The patient also had a CT of the abdomen and pelvis that showed no acute pathology except for cholelithiasis. HOSPITAL COURSE: The patient was seen in GI consult by Dr. Dana Castillo. The patient is currently pain free and does not wish any further workup or treatment at this time. The patient has been asked to follow up with primary about possible cholecystectomy as well as a colonoscopy if her symptoms recur. The patient will be discharged home to be on Levaquin 500 mg daily for 7 days with Flagyl 500 mg t.i.d. for 7 days. FINAL DIAGNOSES: * GI bleeding, questionably secondary to hemorrhoidal bleed. * Cholelithiasis with questionable acute cholecystitis. Time spent in discharge planning and review of plan with the patient and nursing was 37 minutes. MD OTIS Dickson/GISELL TID: [id number] RECEIPT: [id number]
[2025-03-22 10:39] VITALS: BP 105/57; PULSE 66; RESP 18; TEMP 36.9; O2SAT 99
== END 2025-03-22 11:06 | disposition home or self-care (01) ==
LOC: ER 11:44 → OVERFLOW 17:26 → CENTRAL 03-21 12:14
PROVIDERS: ADMIT Internal Medicine; ATTEND Internal Medicine
DX: K80.00 Calculus of gallbladder with acute cholecystitis without obstruction (principal); D72.829 Elevated white blood cell count, unspecified; K21.9 Gastro-esophageal reflux disease without esophagitis; K59.00 Constipation, unspecified; K64.9 Unspecified hemorrhoids
CPT/HCPCS: 36415; 74176; 76705; 80048; 80053; 81001; 81025; 82270; 83690; 85025; 85048; 85610; 85730; 96365; G0378; J2470; J3490